=== PATIENT | female | born 1925 | race Caucasian/White ===

== ENCOUNTER 2016-07-14 20:33 | Emergency (ER) | payer MEDICARE, OTHER ==
[2016-07-14] MEDS ORDERED: TYLENOL325 M2 PO ×2 (20:56→21:05)
[2016-07-14] MEDS ORDERED: COUMADIN6 M1 PO (20:58)
[2016-07-14] MEDS ORDERED: LASIX40 M1 PO (20:59)
[2016-07-14] MEDS ORDERED: FEOSOL325 M1 PO (20:59)
[2016-07-14] MEDS ORDERED: ARICEPT10 M2 PO (20:59)
[2016-07-14] MEDS ORDERED: FUROSEMIDE40 M2 PO (21:00)
[2016-07-14] MEDS ORDERED: TOPROL XL50 M1 PO (21:01)
[2016-07-14] MEDS ORDERED: ONE DAILY WITH1 EAC1 PO (21:01)
[2016-07-14] MEDS ORDERED: PRESERVISION L1 EACH PO (21:02)
[2016-07-14] MEDS ORDERED: POTASSIUM CHLO20 ME3 PO (21:02)
[2016-07-14] MEDS ORDERED: EVISTA60 M1 PO (21:02)
[2016-07-14] MEDS ORDERED: SPIRONOLACTONE25 M2 PO (21:04)
[2016-07-14] MEDS ORDERED: TOLTERODINE TART1 MG PO (21:04)
[2016-07-14] MEDS ORDERED: ULTRAM50 M1 PO (21:05)
[2016-07-14] MEDS ORDERED: DIOVAN160 M1 PO (21:06)
[2016-07-14] MEDS ORDERED: VITAMIN D31000 UNI3 PO (21:06)
== END 2016-07-15 00:21 ==
LOC: EDMED 20:33
PROC: 0RSJXZZ Reposition Right Shoulder Joint, External Approach (ICD-10-PCS; principal; 2016-07-15)
DX: S43.014A Anterior dislocation of right humerus, initial encounter (principal); I50.9 Heart failure, unspecified; I48.91 Unspecified atrial fibrillation; Z86.73 Personal history of transient ischemic attack (TIA), and cerebral infarction without residual deficits; Z85.43 Personal history of malignant neoplasm of ovary; W18.30XA Fall on same level, unspecified, initial encounter; Y92.009 Unspecified place in unspecified non-institutional (private) residence as the place of occurrence of the external cause
CPT/HCPCS: J2704

== ENCOUNTER 2016-07-26 08:50 | Inpatient (IN) | payer MEDICARE, OTHER ==
[~2016-07-26 08:50] MED LIST: ARICEPT10 M2 PO; COUMADIN6 M1 PO; DIOVAN160 M1 PO; EVISTA60 M1 PO; FEOSOL325 M1 PO; FUROSEMIDE40 M2 PO; LASIX40 M1 PO; ONE DAILY WITH1 EAC1 PO; POTASSIUM CHLO20 ME3 PO; PRESERVISION L1 EACH PO; SPIRONOLACTONE25 M2 PO; TOLTERODINE TART1 MG PO; TOPROL XL50 M1 PO; TYLENOL325 M2 PO; ULTRAM50 M1 PO; VITAMIN D31000 UNI3 PO
[2016-07-26 09:07] LABS: CARBON DIOXIDE-VENOUS 32 mmol/L (21-33); CREATININE 1.17 mg/dl (0.67-1.17); GLUCOSE 115 mg/dl (65-120); POTASSIUM 4.5 mmol/L (3.5-5.3); SODIUM 137 mmol/L (135-146); eGFR VALUE FOR BLACK 48 mL/Min
[2016-07-26 09:11] LABS: BASO % 0.3 % (0-2); EOS % 1.6 % (0-7); EOSINOPHIL ABSOLUTE COUNT 0.1 tho/cmm (0.0-0.7); HCT-HEMATOCRIT 33.4 % (34.0-49.0); HGB-HEMOGLOBIN 10.8 gm/dl (12.0-15.5); IMMATURE GRANULOCYTES ABSOLUTE 0.01 tho/cmm (0-0.03); IMMATURE GRANULOCYTES PERCENT 0.1 % (0-0.3); LYMPH % 10.5 % (20-45); LYMPH ABSOLUTE COUNT 0.7 tho/cmm (0.8-4.5); MCH (MEAN CORPUSCULAR HGB) 30.9 pg (28.0-32.0); MCHC MEAN CORPUSCULAR HGB CONC 32.3 % (32.0-36.0); MCV (MEAN CELL VOLUME) 95.7 fl (82.0-96.0); MEAN PLATELET VOLUME 9.7 cmc (9.4-12.4); MONO % 7.2 % (0-12); MONOCYTE ABSOLUTE COUNT 0.5 tho/cmm (0.0-1.2); NEUTROPHIL ABSOLUTE COUNT 5.7 tho/cmm (1.6-8.0); NEUTROPHIL-AUTOMATED 5.7 tho/cmm (1.6-8.0); NEUTROPHILS % 80.3 % (40-80); PLATELET COUNT 159 tho/cmm (150-450); RED BLOOD COUNT 3.49 mil/cmm (4.00-5.20); RED CELL DISTRIBUTION WIDTH 15.8 % (12.4-16.4); WHITE BLOOD COUNT 7.1 tho/cmm (4.0-10.0)
[2016-07-26 09:12] LABS: PROTHROMBIN TIME 75.2 SECONDS (9.0-13.6)
[2016-07-26 09:31] LABS: ALB/GLOB RATIO 0.8 (0.8-2.0); ALBUMIN 3.4 g/dl (3.5-5.0); ALKALINE PHOSPHATASE 126 U/L (33-138); ALT/SGPT 18 U/L (12-78); AST/SGOT 20 U/L (10-40); BILIRUBIN,TOTAL 0.7 mg/dl (0-1.5); BLOOD UREA NITROGEN 57 mg/dl (6-24); CALCIUM 8.5 mg/dl (8.5-10.5); CHLORIDE 102 mmol/l (96-110)
[2016-07-26 09:33] LABS: INR 6.1 INR (0.9-1.1)
[2016-07-26 09:36] LABS: ANION GAP 8 mmol/L (0-20)
[2016-07-26] MEDS ORDERED: LEVAQUIN250 M3 PO (09:42)
[2016-07-26] MEDS ORDERED: BISCOLAX10 MG PR (09:53)
[2016-07-26] MEDS ORDERED: COUMADIN6 M1 (09:54)
[2016-07-26] MEDS ORDERED: PRESERVISION LUTEIN PO (09:56)
[2016-07-27 06:51] LABS: INR 2.7 INR (0.9-1.1)
[2016-07-28 05:17] LABS: INR 3.3 INR (0.9-1.1); PROTHROMBIN TIME 39.6 SECONDS (9.0-13.6)
--- NOTE | 2016-07-28 10:55 | NUR ---
PRESENT WHEN Dannielle FOSTER NP SPOKE WITH SON AND DTR. DECISION MADE TO RETURN TO [facility] WITH [facility]. CALLED AND FAXED HOSPICE. CLEMENTINE WOLF WILL ARRANGE AMBULANCE FOR 1330. HE WILL ALSO COMMUNICATE WITH [facility]TC FACILITY. FAMILY AWARE OF PLAN. FURNITURE SERVICER CALLED TO GIVE SACRAMENT OF THE SICK PER FAMILY REQUEST. RINCON WILL BE PLACED BEFORE DC. SUPPORT TO FAMILY, THEY ARE TEARFUL. PTS SISTER HER TO VISIT.
[2016-07-28] MEDS ORDERED: ATIVAN0.5 M1 (10:58)
[2016-07-28] MEDS ORDERED: ROXANOL (10:58)
[2016-07-28] MEDS ORDERED: ATROPINE S0.4 MG/1 M (11:00)
--- NOTE | 2016-07-28 11:44 | NUR ---
COMFORT CARES. LETHARGIC AND NONVERBAL
--- NOTE | 2016-07-28 11:45 | NUR ---
LETHARGIC AND NON VERBAL. ON COMFORT CARES.
--- NOTE | 2016-07-28 11:45 | NUR ---
COMFORT CARES/ LETHARGIC AND NON VERBAL
--- NOTE | 2016-07-28 11:45 | NUR ---
LETHARGIC AND ON COMFORT CARES. FAMILY INVOLVED WITH CARES AND IS AWARE OD DISCHARGE PLAN.
--- NOTE | 2016-07-28 11:45 | NUR ---
NPO. ON COMFORT CARES NOW. FAILED SWALLOW.
--- NOTE | 2016-07-28 11:46 | NUR ---
PT IS ON COMFORT CARES. FAMILY ON BOARD WITH DISCHARGE PLAN
== END 2016-07-28 13:57 | disposition hospice, inpatient (51) | DRG 65 ==
LOC: EDMED 08:50 → EMR2 10:34 → 5EB 11:55
PROVIDERS: Emergency Medicine; Family Medicine; ADMIT Internal Medicine
PROC: 30233N1 Transfusion of Nonautologous Red Blood Cells into Peripheral Vein, Percutaneous Approach (ICD-10-PCS; principal; 2016-07-26)
DX: I63.8 Other cerebral infarction (principal); I69.351 Hemiplegia and hemiparesis following cerebral infarction affecting right dominant side; J96.11 Chronic respiratory failure with hypoxia; F03.90 Unspecified dementia, unspecified severity, without behavioral disturbance, psychotic disturbance, mood disturbance, and anxiety; I50.9 Heart failure, unspecified; I11.0 Hypertensive heart disease with heart failure; I48.2 Chronic atrial fibrillation; I48.91 Unspecified atrial fibrillation; Z66 Do not resuscitate; Z51.5 Encounter for palliative care; I69.392 Facial weakness following cerebral infarction; Z85.43 Personal history of malignant neoplasm of ovary; Z90.710 Acquired absence of both cervix and uterus; Z95.2 Presence of prosthetic heart valve; I69.320 Aphasia following cerebral infarction
CPT/HCPCS: J2270; J7030; P9017; Q9967